=== PATIENT | female | born 1960 | race Two or more races ===

== ENCOUNTER 2019-05-09 12:01 | Inpatient (IN) | payer BC, OTHER ==
[~2019-05-09] VITALS: Ht 157.5 cm; Wt 76.7 kg
[~2019-05-09 12:01] MED LIST: BREO ELLIPTA; MONT10TA21 PO; PHEN473S12 PO; prednisone PO
[2019-05-09] MEDS ORDERED: IPRATROPIUM BROMIDE (0.02%) 0.5MG/2.5ML NEB HHN STA ×2 (12:15→12:53)
[2019-05-09] MEDS ORDERED: ALBUTEROL (0.083%) 2.5MG/3ML NEB HHN STA (12:15)
[2019-05-09] MEDS ORDERED: SODIUM CHLORIDE 0.9% 1,000 ML IV ONE (12:53)
[2019-05-09] MEDS ORDERED: METHYLPREDNISOLONE SOD SUCC 125 MG/2 ML VIAL IV STA (12:53)
[2019-05-09 13:17] LABS: BASOPHILS % 0.2 % (0.0-2.0); HEMATOCRIT. 37.4 % (36.0-48.0); HEMOGLOBIN. 12.7 g/dL (12.0-16.0); LYMPHOCYTES % 9.2 % (20.0-50.0); MEAN CORPUSCULAR HEMOGLOBIN 29.4 pg (28.0-32.0); MEAN CORPUSCULAR VOLUME 86.7 fL (81.0-99.0); MONOCYTES % 4.5 % (2.0-8.0); NEUTROPHILS % 86.1 % (40.0-76.0); PLATELET 500 x1000/uL (130-400); RED BLOOD CELL COUNT 4.31 mill/uL (4.2-5.4); RED CELL DISTRIBUTION WIDTH 13.6 % (11.6-14.6)
[2019-05-09 13:19] LABS: CHLORIDE 110 mEq/L (98-107)
[2019-05-09] MEDS ORDERED: LORAZEPAM 2MG/ML CPJ IV ONE (14:15)
[2019-05-09] MEDS ORDERED: LORAZEPAM 1MG TABLET PO ONE (15:15)
[2019-05-09] MEDS ORDERED: ONDANSETRON HCL 4MG/2ML INJ IV STA (18:05)
[2019-05-09] MEDS ORDERED: MORPHINE SULFATE 4 MG/ML CPJ (NOT FOR IM USE) IV STA (18:05)
[2019-05-09] MEDS ORDERED: CLONIDINE 0.1MG TABLET PO PRN (20:00)
[2019-05-09] MEDS ORDERED: LORAZEPAM 0.5MG TABLET PO PRN (20:00)
[2019-05-09] MEDS ORDERED: GUAIFENESIN 200MG/10ML SUGAR FREE UDC PO PRN (20:00)
[2019-05-09] MEDS ORDERED: DIPHENHYDRAMINE 50MG/ML VIAL IV PRN (20:00)
[2019-05-09] MEDS ORDERED: MAGNESIUM/ALUMINUM HYDROXIDE/SIMETHICONE 30ML UDC PO PRN (20:00)
[2019-05-09] MEDS ORDERED: DOCUSATE SODIUM 100MG CAPSULE PO PRN (20:00)
[2019-05-09] MEDS ORDERED: NITROGLYCERIN 0.4MG TABLET SL SL PRN (20:00)
[2019-05-09] MEDS ORDERED: ONDANSETRON HCL 4MG/2ML INJ IV PRN (20:00)
[2019-05-09] MEDS ORDERED: ACETAMINOPHEN 325MG TABLET PO PRN (20:00)
[2019-05-09] MEDS ORDERED: TRAMADOL 50MG TABLET PO PRN (20:29)
[2019-05-09] MEDS ORDERED: KETOROLAC 15MG/ML VIAL IV PRN (20:33)
[2019-05-09] MEDS ORDERED: FAMOTIDINE 20MG TABLET PO SCH (21:00)
[2019-05-09] MEDS ORDERED: GUAIFENESIN/DM 600MG/30MG ER TAB 12HR PO SCH (21:00)
[2019-05-09] MEDS ORDERED: ENOXAPARIN 40MG/0.4ML SYR SUBCUT SCH (21:00)
[2019-05-09] MEDS ORDERED: AZITHROMYCIN 500 MG in DEXT 5% WATER 250 ML IV SCH (21:00)
[2019-05-09 22:00] VITALS: BP 154/73
[2019-05-09] MEDS ORDERED: IOHEXOL-350 100 ML BOTTLE ONE (22:00)
[2019-05-09] MEDS: DILTIAZEM HCL 60MG TABLET PO SCH (23:54)
[2019-05-09] MEDS: ZOLPIDEM TARTRATE 5MG TABLET PO PRN (23:54)
[2019-05-10] VITALS (7 sets, daily range): BP systolic 126–155; BP diastolic 62–91
[2019-05-10] MEDS ORDERED: ALBU4TAB6 PO (01:02)
[2019-05-10] MEDS ORDERED: PRED10TA23 MT (01:03)
[2019-05-10] MEDS: IPRATROPIUM/ALBUTEROL 0.5-3(2.5)MG/3ML NEB INH PRN ×4 (01:05→14:52)
[2019-05-10 02:23] LABS: CREATINE KINASE 100 IU/L (26-192)
[2019-05-10 02:24] LABS: CREATINE KINASE MB FRACTION 2.1 ng/mL (0.5-3.6)
[2019-05-10 04:37] LABS: *AMPHETAMINES SCREEN URINE NEGATIVE (NEGATIVE); *BARBITURATES SCREEN URINE NEGATIVE (NEGATIVE); *BENZODIAZEPINES SCREEN URINE NEGATIVE (NEGATIVE)
[2019-05-10 04:38] LABS: *COCAINE SCREEN URINE NEGATIVE (NEGATIVE); CANNABINOID URINE SCREEN NEGATIVE (NEGATIVE); METHADONE URINE SCREEN NEGATIVE (NEGATIVE); OPIATES URINE SCREEN PRESUMTIVE POSITIVE (NEGATIVE); PHENCYCLIDINE URINE SCREEN NEGATIVE (NEGATIVE)
[2019-05-10] MEDS: DILTIAZEM HCL 60MG TABLET PO SCH ×3 (05:35→17:32)
[2019-05-10 07:32] LABS: CREATINE KINASE 91 IU/L (26-192)
[2019-05-10 07:37] LABS: CREATINE KINASE MB FRACTION 1.8 ng/mL (0.5-3.6)
[2019-05-10] MEDS: PREDNISONE 20MG TABLET PO SCH (09:00)
[2019-05-10] MEDS: GUAIFENESIN/DM 600MG/30MG ER TAB 12HR PO SCH ×2 (09:00→21:15)
[2019-05-10] MEDS: FAMOTIDINE 20MG TABLET PO SCH ×2 (12:10→21:15)
[2019-05-10] MEDS: ASPIRIN 325MG EC TABLET PO SCH (12:10)
[2019-05-10] MEDS ORDERED: MONTELUKAST SODIUM 10MG TABLET PO SCH (17:00)
[2019-05-10] MEDS ORDERED: ENOXAPARIN 40MG/0.4ML SYR SUBCUT SCH (21:00)
[2019-05-10] MEDS ORDERED: AZITHROMYCIN 500 MG in DEXT 5% WATER 250 ML IV SCH (21:00)
[2019-05-10] MEDS: ZOLPIDEM TARTRATE 5MG TABLET PO PRN (21:15)
[2019-05-10] MEDS: ALBUTEROL (0.083%) 2.5MG/3ML NEB HHN SCH (22:02)
[2019-05-10] MEDS ORDERED: AZITHROMYCIN 500 MG in DEXT 5% WATER 250 ML IV NR (23:30)
[2019-05-11] VITALS: BP 119/70
[2019-05-11] MEDS: ALBUTEROL (0.083%) 2.5MG/3ML NEB HHN SCH ×2 (02:55→07:41)
[2019-05-11 04:00] VITALS: BP 142/75
[2019-05-11] MEDS: DILTIAZEM HCL 60MG TABLET PO SCH ×2 (05:18)
[2019-05-11 08:00] VITALS: BP 129/79
[2019-05-11] MEDS: GUAIFENESIN/DM 600MG/30MG ER TAB 12HR PO SCH (08:42)
[2019-05-11] MEDS: FAMOTIDINE 20MG TABLET PO SCH (08:42)
[2019-05-11] MEDS: PREDNISONE 20MG TABLET PO SCH (08:42)
[2019-05-11] MEDS: ASPIRIN 325MG EC TABLET PO SCH (08:42)
[2019-05-11] MEDS: IPRATROPIUM/ALBUTEROL 0.5-3(2.5)MG/3ML NEB INH PRN (11:19)
[2019-05-11] MEDS ORDERED: AZITHROMYCIN 500MG in DEXTROSE 5% WATER 250ML IV SCH (21:00)
== END 2019-05-11 12:40 | disposition home or self-care (01) | DRG 202 ==
LOC: ER 12:41 → EDBEDREQ 19:13 → 8WST 19:54 → ENRESERV 20:36
PROVIDERS: ADMIT Internal Medicine; ATTEND Internal Medicine
DX: J45.901 Unspecified asthma with (acute) exacerbation (principal); I47.1 Supraventricular tachycardia; E87.0 Hyperosmolality and hypernatremia; R79.89 Other specified abnormal findings of blood chemistry; R07.81 Pleurodynia; Z82.49 Family history of ischemic heart disease and other diseases of the circulatory system; Z87.01 Personal history of pneumonia (recurrent); Z88.0 Allergy status to penicillin
CPT/HCPCS: 36415; 71045; 71275; 80061; 80305; 82550; 82553; 83036; 83880; 84484; 93306; 93970; 96374; 99285; J0456; J1650; J2060; J2270; J2405; J2930; J7030; J7060; J7512; J7611; J7620; Q9967

== ENCOUNTER 2022-02-22 13:17 | Emergency (ER) | payer MEDICAID, OTHER ==
[~2022-02-22] VITALS: Ht 162.6 cm; Wt 91.0 kg
[~2022-02-22 13:17] MED LIST changes: +ALBU4TAB6 PO; +PRED10TA23 MT; -prednisone PO
[2022-02-22 13:29] VITALS: BP 167/88
[2022-02-22 15:53] LABS: BASOPHILS % 0.6 % (0.0-2.0); EOSINOPHILS % 2.8 % (0.0-5.0); HEMATOCRIT. 43.4 % (36.0-48.0); HEMOGLOBIN. 14.5 g/dL (12.0-16.0); LYMPHOCYTES % 28.9 % (20.0-50.0); MEAN CORPUSCULAR HEMOGLOBIN 28.9 pg (28.0-32.0); MEAN CORPUSCULAR VOLUME 86.3 fL (81.0-99.0); MEAN PLATELET VOLUME 7.9 fl (7.4-10.4); MONOCYTES % 6.1 % (2.0-8.0); NEUTROPHILS % 61.6 % (40.0-76.0); PLATELET 469 x1000/uL (130-400); RED BLOOD CELL COUNT 5.03 mill/uL (4.2-5.4); RED CELL DISTRIBUTION WIDTH 13.8 % (11.6-14.6)
[2022-02-22 16:00] LABS: CHLORIDE 109 mEq/L (98-107)
== END 2022-02-22 18:58 | disposition left against medical advice (07) ==
LOC: ER 13:17
DX: R07.9 Chest pain, unspecified (principal); R06.00 Dyspnea, unspecified; R10.11 Right upper quadrant pain; J45.909 Unspecified asthma, uncomplicated; Z88.0 Allergy status to penicillin
CPT/HCPCS: 36415; 71045; 76705; 80053; 83880; 84484; 85025; 93005; 99285

== ENCOUNTER 2022-12-02 18:33 | Inpatient (IN) | payer MEDICAID ==
[~2022-12-02] VITALS: Ht 167.6 cm; Wt 95.5 kg
[~2022-12-02 18:33] MED LIST changes: +MONT-46 PO; -MONT10TA21 PO
[2022-12-02] MEDS ORDERED: IPRATROPIUM BROMIDE (0.02%) 0.5MG/2.5ML NEB HHN STA (18:49)
[2022-12-02] MEDS ORDERED: METHYLPREDNISOLONE SOD SUCC 125 MG/2 ML VIAL IV STA (18:49)
[2022-12-02] MEDS ORDERED: MAGNESIUM 2 G PREMIX 50 ML IV ONE (19:00)
[2022-12-02] MEDS ORDERED: SODIUM CHLORIDE 0.9% 1,000 ML IV ONE (19:00)
[2022-12-02] MEDS: ALBUTEROL (0.083%) 2.5MG/3ML NEB HHN SCH ×3 (20:08→22:08)
[2022-12-02 21:48] LABS: BASOPHILS % 0.3 % (0.0-2.0); EOSINOPHILS % 0.3 % (0.0-5.0); HEMATOCRIT. 35.7 % (36.0-48.0); HEMOGLOBIN. 11.8 g/dL (12.0-16.0); LYMPHOCYTES % 9.9 % (20.0-50.0); MEAN CORPUSCULAR HEMOGLOBIN 28.5 pg (28.0-32.0); MEAN CORPUSCULAR VOLUME 86.3 fL (81.0-99.0); MEAN PLATELET VOLUME 7.6 fl (7.4-10.4); MONOCYTES % 1.6 % (2.0-8.0); NEUTROPHILS % 87.9 % (40.0-76.0); PLATELET 464 x1000/uL (130-400); RED BLOOD CELL COUNT 4.14 mill/uL (4.2-5.4); RED CELL DISTRIBUTION WIDTH 14.4 % (11.6-14.6)
[2022-12-02 21:54] LABS: CHLORIDE 110 mEq/L (98-107)
[2022-12-02] MEDS ORDERED: ASPIRIN 325MG EC TABLET PO ONE (22:15)
[2022-12-03 12:00] VITALS: BP 167/79
[2022-12-03] MEDS ORDERED: ACETAMINOPHEN 325MG TABLET PO PRN (12:45)
[2022-12-03] MEDS ORDERED: ACETAMINOPHEN 650MG/20.3ML UDC GT PRN (12:45)
[2022-12-03] MEDS ORDERED: IPRATROPIUM/ALBUTEROL 0.5-3(2.5)MG/3ML NEB HHN SCH (12:45)
[2022-12-03] MEDS ORDERED: CLONIDINE 0.1MG TABLET PO PRN (12:45)
[2022-12-03] MEDS ORDERED: DEXTROSE 50% WATER 50ML SYRINGE IV PRN (12:45)
[2022-12-03] MEDS: BLOOD SUGAR DIAGNOSTIC STRIP TEST SCH ×3 (13:02→20:56)
[2022-12-03] MEDS: ENOXAPARIN 30MG/0.3ML SYR SUBCUT SCH ×2 (13:19→22:01)
[2022-12-03] MEDS: INSULIN LISPRO 100 UNITS/ML SUBCUT SCH ×3 (13:24→22:02)
[2022-12-03] MEDS: LEVOFLOXACIN 500MG PREMIX 100 ML IV SCH (15:03)
[2022-12-03] MEDS: IPRATROPIUM BROMIDE (0.02%) 0.5MG/2.5ML NEB HHN SCH ×2 (15:48→21:09)
[2022-12-03] MEDS: ALBUTEROL (0.083%) 2.5MG/3ML NEB HHN SCH ×2 (15:48→21:08)
[2022-12-03 16:00] VITALS: BP 146/80
[2022-12-03 16:26] LABS: CREATINE KINASE MB FRACTION 4.9 ng/mL (0.5-3.6)
[2022-12-03] MEDS ORDERED: ALBU6.7H3 INH (16:55)
[2022-12-03] MEDS ORDERED: P20 MT (16:55)
[2022-12-03] MEDS ORDERED: MONTELUKAST SODIUM 10MG TABLET PO SCH (17:00)
[2022-12-03] MEDS: PREDNISONE 20MG TABLET PO SCH (17:40)
[2022-12-03 17:55] LABS: BG CARBOXYHEMOGLOBIN 0.3 % (0.5-1.5); BG DEOXYHEMOGLOBIN 2.8 % (0.0-5.0); BG FRACTION INSPIRED OXYGEN 21; BG HCO3 ACT 24.3 mmol/L (22.0-26.0); BG METHEMOGLOBIN 0.1 % (0.0-1.5); BG OXYGEN SATURATION 97.2 % (92.0-98.5); BG OXYHEMOGLOBIN 96.8 % (94.0-97.0); BG PH 7.423 (7.350-7.450); BG PO2 95.2 mmHg (75.0-100.0); BG SAMPLE SITE RIGHT BRACHIAL; BG VENT MODE ROOM AIR
[2022-12-03 20:00] VITALS: BP 158/90
[2022-12-03] MEDS ORDERED: ZOLPIDEM TARTRATE 5MG TABLET PO PRN (20:45)
[2022-12-03] MEDS: BUDESONIDE 0.5MG/2ML NEB HHN SCH (21:09)
[2022-12-03 23:35] LABS: CREATINE KINASE MB FRACTION 4.8 ng/mL (0.5-3.6)
[2022-12-04] VITALS (7 sets, daily range): BP systolic 131–173; BP diastolic 70–91
[2022-12-04] MEDS: ALBUTEROL (0.083%) 2.5MG/3ML NEB HHN SCH ×4 (00:48→12:19)
[2022-12-04] MEDS: IPRATROPIUM BROMIDE (0.02%) 0.5MG/2.5ML NEB HHN SCH ×4 (00:48→12:19)
[2022-12-04 06:07] LABS: BASOPHILS % 0.2 % (0.0-2.0); HEMATOCRIT. 35.8 % (36.0-48.0); HEMOGLOBIN. 11.6 g/dL (12.0-16.0); LYMPHOCYTES % 14.5 % (20.0-50.0); MEAN CORPUSCULAR HEMOGLOBIN 28.2 pg (28.0-32.0); MEAN CORPUSCULAR VOLUME 86.8 fL (81.0-99.0); MONOCYTES % 4.9 % (2.0-8.0); NEUTROPHILS % 80.4 % (40.0-76.0); PLATELET 438 x1000/uL (130-400); RED BLOOD CELL COUNT 4.13 mill/uL (4.2-5.4); RED CELL DISTRIBUTION WIDTH 14.4 % (11.6-14.6)
[2022-12-04] MEDS: BLOOD SUGAR DIAGNOSTIC STRIP TEST SCH ×2 (06:40→12:40)
[2022-12-04 07:56] LABS: CHLORIDE 108 mEq/L (98-107)
[2022-12-04] MEDS: INSULIN LISPRO 100 UNITS/ML SUBCUT SCH ×2 (08:10→13:10)
[2022-12-04] MEDS: BUDESONIDE 0.5MG/2ML NEB HHN SCH (09:06)
[2022-12-04] MEDS: PREDNISONE 20MG TABLET PO SCH (10:02)
[2022-12-04] MEDS: ENOXAPARIN 30MG/0.3ML SYR SUBCUT SCH (10:02)
[2022-12-04] MEDS ORDERED: AMLO5TAB4 MT (13:12)
[2022-12-04] MEDS ORDERED: METF-414 MT (13:12)
[2022-12-04] MEDS: LEVOFLOXACIN 500MG PREMIX 100 ML IV SCH (14:30)
== END 2022-12-04 17:18 | disposition home or self-care (01) | DRG 133 ==
LOC: ER 18:33 → 7WST 22:17 → EDBEDREQ 23:00 → EDBEDREQTM 23:00
PROVIDERS: ADMIT Internal Medicine; ATTEND Internal Medicine
DX: J96.01 Acute respiratory failure with hypoxia (principal); J45.901 Unspecified asthma with (acute) exacerbation; E11.65 Type 2 diabetes mellitus with hyperglycemia; D64.9 Anemia, unspecified; F41.9 Anxiety disorder, unspecified; F17.210 Nicotine dependence, cigarettes, uncomplicated; I10 Essential (primary) hypertension
CPT/HCPCS: 36415; 36600; 71045; 80048; 80053; 82375; 82550; 82553; 82805; 82962; 83036; 83880; 84484; 85025; 93005; 94640; 99291; J1650; J1815; J1956; J2930; J3475; J7030; J7512; J7626

== ENCOUNTER 2023-04-24 22:55 | Emergency (ER) | payer MEDICAID ==
[~2023-04-24] VITALS: Ht 165.1 cm; Wt 91.0 kg
[~2023-04-24 22:55] MED LIST changes: +ALBU6.7H3 INH; +AMLO5TAB4 MT; +METF-414 MT; +P20 MT
[2023-04-24 22:59] VITALS: BP 167/83; PULSE 90; RESP 16; TEMP 98.4; O2SAT 98
[2023-04-24] MEDS ORDERED: TRAMADOL 50MG TABLET PO ONE (23:45)
== END 2023-04-25 00:23 | disposition left against medical advice (07) ==
LOC: ER 22:55
DX: R10.11 Right upper quadrant pain (principal); J45.909 Unspecified asthma, uncomplicated
CPT/HCPCS: 99283